=== PATIENT | female | born 2000 | race African-American/Black ===

== ENCOUNTER 2020-06-24 19:07 | Emergency (ER) | payer OTHER ==
[~2020-06-24] VITALS: Ht 157.5 cm; Wt 86.2 kg
[2020-06-24 19:37] LABS: ABSOLUTE NEUTROPHILS 5.5 thou/uL (1.4-8.2); HEMATOCRIT 40.1 % (37.0-47.0); HEMOGLOBIN 13.5 gm/dL (12.0-15.0); LYMPHOCYTES 23.5 % (24.0-44.0); MCH 29.5 pg (26.0-34.0); MCHC 33.5 g/dL (28.0-37.0); MCV 87.9 fL (80.0-100.0); MONOCYTES 6.6 % (1.0-8.0); PLATELET COUNT 335 thou/uL (150-400); POLYS 65.9 % (36.0-66.0); RBC 4.56 mil/uL (4.20-5.00); RDW 14.7 % (10.5-14.5); WBC 8.4 thou/uL (4.0-11.0)
[2020-06-24 19:44] LABS: ANION GAP 9 mmol/L (7-16); BUN 9 mg/dL (7-18); CHLORIDE 105 mmol/L (98-107); CO2 27 mmol/L (21-32); CREATININE 0.7 mg/dL (0.6-1.0); GLUCOSE 87 mg/dL (74-106); POTASSIUM 3.9 mmol/L (3.5-5.1); SODIUM 141 mmol/L (136-145)
[2020-06-24] MEDS ORDERED: WARFARIN SODIUM10 MG PO (19:47)
[2020-06-24 19:51] LABS: URINE BILIRUBIN NEGATIVE (Negative); URINE BLOOD 3+ (Negative); URINE CLARITY CLEAR; URINE COLOR YELLOW; URINE GLUCOSE-RANDOM* NEGATIVE (Negative); URINE KETONES NEGATIVE (Negative); URINE LEUKOCYTES-REFLEX NEGATIVE (Negative); URINE NITRITE-REFLEX NEGATIVE (Negative); URINE PROTEIN (DIPSTICK) NEGATIVE (Negative); URINE SPECIFIC GRAVITY >= 1.030 (1.005-1.035); URINE UROBILINOGEN 0.2 E.U./dl (0.2-1.0)
[2020-06-24 19:53] LABS: INR 2.2; PROTIME 22.8 Seconds (9.3-11.4); SGOT 19 U/L (15-37); SGPT 22 U/L (30-65); TOTAL BILIRUBIN 0.3 mg/dL (0.2-1.0); TOTAL PROTEIN 8.5 g/dL (6.4-8.2); TROPONIN-I <0.06 ng/mL (<0.06)
[2020-06-24 20:10] LABS: SQUAMOUS 4-10 Moderate /LPF (0-3); URINE RBC >20 Many /HPF (0-2)
[2020-06-24 20:11] LABS: BACTERIA-REFLEX 1-9 Few /HPF (None Seen); CASTS None Seen /LPF (None Seen); CRYSTALS None Seen /LPF (None Seen); MUCUS 0-3 Light strn/LPF (None Seen); URINE WBC-REFLEX 0-5 Rare /HPF (0-5)
[2020-06-24] MEDS ORDERED: TRAMADOL 50 MG50 MG PO (21:05)
[2020-06-24] MEDS ORDERED: PREDNISONE10 MG PO (21:13)
[2020-06-24 21:28] VITALS: BP 112/58
--- NOTE | 2020-06-25 09:29 | EKG ---
[place] [address] ELECTROCARDIOGRAM REPORT Name: TOÑO LOVING [id number] Admission: 06/24/20 Attend Phys: Discharge: 06/24/20 Date of : [birth year] Report #: [id number] THIS REPORT FOR: cc: JEWELL Davenport family physician/PCP JEWELL Davenport family physician/PCP Vasmhi Armstrong MD [facility] ~ THIS REPORT FOR: //name// ED Test Date: 2020-06-24 Test Time: 19:42:42 Pat Name: TOÑO LOVING Department: Room: Gender: F [employer] Supervisor: GLADYS : 2000 Requested By: Evette Herrmann Order Number: [id number] MD: Vamshi Armstrong Measurements Intervals [place] Rate: 82 P: 48 OR: 126 QRS: 2 QRSD: 83 T: 5 QT: 367 QTc: 429 Interpretive Statements Sinus rhythm No previous ECG available for comparison Electronically Signed On 06-25-2020 9:29:46 CDT by Vamshi Armstrong [email or web address] <ELECTRONICALLY SIGNED> By: Vamshi Armstrong MD, FACC 06/25/20928 41 41 Vamshi Armstrong MD, FACC /EPI
== END 2020-06-24 21:29 | disposition home or self-care (01) ==
LOC: ER 19:07
PROVIDERS: Nurse Practitioner Family
DX: M54.6 Pain in thoracic spine (principal); M25.511 Pain in right shoulder; Z86.711 Personal history of pulmonary embolism; Z79.01 Long term (current) use of anticoagulants

== ENCOUNTER 2020-09-05 05:02 | Emergency (ER) | payer OTHER ==
[~2020-09-05] VITALS: Ht 160 cm; Wt 86.2 kg
[~2020-09-05 05:02] MED LIST: PREDNISONE10 MG PO; TRAMADOL 50 MG50 MG PO; WARFARIN SODIUM10 MG PO
[2020-09-05 05:32] LABS: URINE BILIRUBIN NEGATIVE (Negative); URINE BLOOD NEGATIVE (Negative); URINE CLARITY CLEAR; URINE COLOR YELLOW; URINE GLUCOSE-RANDOM* NEGATIVE (Negative); URINE KETONES NEGATIVE (Negative); URINE LEUKOCYTES-REFLEX NEGATIVE (Negative); URINE NITRITE-REFLEX NEGATIVE (Negative); URINE PROTEIN (DIPSTICK) NEGATIVE (Negative); URINE SPECIFIC GRAVITY 1.025 (1.005-1.035); URINE UROBILINOGEN 0.2 E.U./dl (0.2-1.0)
[2020-09-05 06:40] LABS: HEMOGLOBIN 11.7 gm/dL (12.0-15.0); MCH 27.9 pg (26.0-34.0); MCHC 32.5 g/dL (28.0-37.0); MCV 85.9 fL (80.0-100.0); PLATELET COUNT 284 thou/uL (150-400); RBC 4.19 mil/uL (4.20-5.00); RDW 14.5 % (10.5-14.5); WBC 5.9 thou/uL (4.0-11.0)
[2020-09-05 06:57] LABS: APTT 32.7 Seconds (24.5-32.8); INR 1.4; PROTIME 13.9 Seconds (9.3-11.4)
[2020-09-05 07:03] LABS: CALCIUM 8.9 mg/dL (8.5-10.1); CREATININE 0.7 mg/dL (0.6-1.0); POTASSIUM 3.4 mmol/L (3.5-5.1)
[2020-09-05] MEDS ORDERED: REGLAN 5 MG TAB5 MG PO (07:57)
[2020-09-05 08:15] VITALS: BP 106/87
[2020-09-05 09:03] LABS: ABSOLUTE NEUTROPHILS 3.2 thou/uL (1.4-8.2); PLATELET ESTIMATE NORMAL
== END 2020-09-05 08:44 ==
LOC: ER 05:02
PROVIDERS: Emergency Medicine
DX: R51.9 Headache, unspecified (principal); R79.1 Abnormal coagulation profile; R50.9 Fever, unspecified; R11.10 Vomiting, unspecified; Z86.711 Personal history of pulmonary embolism; Z79.01 Long term (current) use of anticoagulants; Z20.828 Contact with and (suspected) exposure to other viral communicable diseases